=== PATIENT | female | born 1975 | race Two or more races ===

== ENCOUNTER 2023-02-10 09:30 | Outpatient (CLI) | payer OTHER ==
[~2023-02-10 09:30] MED LIST: NEXIUM40 MG/PACK
== END 2023-02-10 09:43 | disposition home or self-care (01) ==
LOC: SONOGRAMA 09:30
PROVIDERS: ATTEND Physical Medicine & Rehabilitation Hospice and Palliative Medicine
DX: M65.879 Other synovitis and tenosynovitis, unspecified ankle and foot (principal); M25.572 Pain in left ankle and joints of left foot

== ENCOUNTER 2023-03-01 11:44 | Outpatient (CLI) | payer OTHER | END 2023-03-01 12:03 | disposition home or self-care (01) | LOC: MRI 11:44 | DX: M76.822 Posterior tibial tendinitis, left leg (principal) | CPT/HCPCS: 73721 ==

== ENCOUNTER 2024-03-04 10:02 | Outpatient (CLI) | payer OTHER | END 2024-03-04 10:14 | disposition home or self-care (01) | LOC: MRI 10:02 | DX: S92.302A Fracture of unspecified metatarsal bone(s), left foot, initial encounter for closed fracture (principal) | CPT/HCPCS: 73718 ==

== ENCOUNTER 2024-10-25 19:16 | Emergency (ER) | payer OTHER ==
[~2024-10-25] VITALS: Ht 154.9 cm; Wt 66.7 kg
[2024-10-25] MEDS ORDERED: LIPITOR40 M1 (19:42)
[2024-10-25] MEDS ORDERED: ROPINIROLE HCL1 MG PO (19:43)
[2024-10-25] MEDS ORDERED: IBUPROFEN600 MG PO (23:40)
[2024-10-25] MEDS ORDERED: VIGAMOX3 ML OP (23:40)
== END 2024-10-26 02:03 | disposition home or self-care (01) ==
LOC: ER 19:16
DX: H01.006 Unspecified blepharitis left eye, unspecified eyelid (principal)